=== PATIENT | female | born 1980 | race Caucasian/White ===

== ENCOUNTER 2017-03-16 09:31 | Emergency (ER) | payer BC ==
[~2017-03-16] VITALS: Ht 157.5 cm; Wt 88.1 kg
[2017-03-16 09:34] VITALS: BP 153/108
[2017-03-16] MEDS ORDERED: ASPIRIN 325 MG TAB PO ONE (09:45)
--- NOTE | 2017-03-16 09:45 | NUR ---
36F BIB SELF C/O LEFT CHEST PAIN WHILE WALKING AT 0830 TODAY. HX: ANEMIA, HEART MURMUR, ASTHMA. RX: INHALER PRN.DENIES N/V/D; SKIN IS PINK/WARM/DRY; AAOX4 WITH EVEN AND STEADY GAIT; LUNGS CLEAR BL; HR EVEN AND REGULAR; PT DENIES ANY FEVER, SOB, OR COUGH AT THIS TIME; PATIENT STATES PAIN OF 7/10 AT THIS TIME; PATIENT POSITIONED FOR COMFORT; HOB ELEVATED; BEDRAILS UP X2; BED DOWN. ER MD MADE AWARE OF PT STATUS.
[2017-03-16 10:34] LABS: HEMATOCRIT 38.2 % (36-48); HEMOGLOBIN 12.5 g/dL (12.0-16.0); MEAN CORPUSCULAR HEMOGLOBIN 26 pg (27-31); MEAN CORPUSCULAR HGB CONC 33 g/dL (33-37); MEAN CORPUSCULAR VOLUME 79 fL (80-94); PLATELET COUNT (AUTO) 213 K/uL (140-450); RED BLOOD CELL COUNT(AUTO) 4.84 MIL/uL (4.20-5.40); RED CELL DISTRIBUTION WIDTH 12.7 % (11.6-13.7); WHITE BLOOD COUNT (AUTO) 5.3 K/uL (4.8-10.8)
[2017-03-16 10:44] LABS: ANION GAP 11.7 (8-16); CARBON DIOXIDE 27.4 mmol/L (21-32); POTASSIUM 4.1 mmol/L (3.5-5.1)
[2017-03-16 10:45] LABS: PROTHROMBIN TIME 10.3 secs (10.8-13.4)
[2017-03-16 10:46] LABS: ALBUMIN 3.9 g/dL (3.4-5.0); TOTAL BILIRUBIN 0.4 mg/dL (0.0-1.0)
[2017-03-16 10:47] LABS: EOSINOPHILS % (MANUAL) 1 % (0-4); LYMPHOCYTES % (MANUAL) 35 % (20-46); MONOCYTES % (MANUAL) 8 % (5-12)
--- NOTE | 2017-03-16 10:47 | NUR ---
Patient being evaluated by DR LIGHT at bedside.
--- NOTE | 2017-03-16 11:28 | NUR ---
Patient STATED CHEST PAIN 07/04. PT appears to be resting comfortably in bed. BP 130/87,P70/MINS & Respirations even and unlabored.WILL CONTINUE TO MONITOR.
[2017-03-16 12:40] VITALS: BP 128/86
== END 2017-03-16 12:40 | disposition home or self-care (01) ==
LOC: MED 09:31
DX: R07.89 Other chest pain (principal); J45.909 Unspecified asthma, uncomplicated; Z88.8 Allergy status to other drugs, medicaments and biological substances
CPT/HCPCS: 36415; 71010; 80053; 83880; 84484; 85025; 85610; 85730; 93005; 99285; Q0092

== ENCOUNTER 2018-03-28 09:46 | Emergency (ER) | payer BC ==
[~2018-03-28] VITALS: Ht 162.6 cm; Wt 92.5 kg
[2018-03-28 09:48] VITALS: BP 149/93
--- NOTE | 2018-03-28 10:00 | NUR ---
CAME IN WITH C/O LOWER ABDOMINAL CRAMPING FOR 8 DAYS. LMP NOV
--- NOTE | 2018-03-28 10:15 | NUR ---
Patient being evaluated by physician at bedside.
--- NOTE | 2018-03-28 10:17 | NUR ---
WITH KARIME ORDER, AND CARRIED OUT, FOR LAB WORKS AND ULTRASOUND.
[2018-03-28 10:37] LABS: BASOPHILS % (AUTO) 0.6 % (0.0-2.0); EOSINOPHILS # (AUTO) 0.1 K/uL (0-0.4); EOSINOPHILS % (AUTO) 1.8 % (0.0-4.0); HEMATOCRIT 38.1 % (36-48); HEMOGLOBIN 12.2 g/dL (12.0-16.0); LYMPHOCYTES # (AUTO) 2.3 K/uL (2.5-16.5); MEAN CORPUSCULAR HEMOGLOBIN 25 pg (27-31); MEAN CORPUSCULAR HGB CONC 32 g/dL (33-37); MEAN CORPUSCULAR VOLUME 77.8 fL (80-94); MONOCYTES # (AUTO) 0.4 K/uL (0.8-1.0); MONOCYTES % (AUTO) 8.9 % (1.7-9.3); NEUTROPHILS # (AUTO) 1.7 K/uL (1.8-7.7); NEUTROPHILS % (AUTO) 37.7 % (42.2-75.2); PLATELET COUNT (AUTO) 234 K/uL (140-450); RED CELL DISTRIBUTION WIDTH 14.1 % (11.6-13.7); WHITE BLOOD COUNT (AUTO) 4.6 K/uL (4.8-10.8)
[2018-03-28 10:47] LABS: ANION GAP 11.3 (8-16); CARBON DIOXIDE 29.3 mmol/L (21-32); CREATININE 0.8 mg/dL (0.6-1.3); POTASSIUM 3.6 mmol/L (3.5-5.1)
--- NOTE | 2018-03-28 10:52 | NUR ---
MENTAL HEALTH ASSISTANT AT BEDSIDE FOR EXAM,
[2018-03-28 10:53] LABS: ALBUMIN 3.8 g/dL (3.4-5.0); TOTAL BILIRUBIN 0.3 mg/dL (0.0-1.0)
--- NOTE | 2018-03-28 12:15 | NUR ---
RESULTS BACK AND NOTED BY ERMD AND FOR D/C.
[2018-03-28 12:28] VITALS: BP 128/85
--- NOTE | 2018-03-28 12:28 | NUR ---
Patient discharged with v/s stable. Written and verbal after care instructions given and explained. Patient alert, oriented and verbalized understanding of instructions. Ambulatory with steady gait. All questions addressed prior to discharge. ID band removed. Patient advised to follow up with PMD. Rx of TRAMADOL 50 MG. given. Patient educated on indication of medication including possible reaction and side effects. Opportunity to ask questions provided and answered.
== END 2018-03-28 12:28 | disposition home or self-care (01) ==
LOC: MED 09:46
DX: R10.2 Pelvic and perineal pain (principal); J45.909 Unspecified asthma, uncomplicated; Z88.5 Allergy status to narcotic agent
CPT/HCPCS: 36415; 76830; 80053; 81002; 81025; 85025; 99284; Q0092

== ENCOUNTER 2019-08-20 08:08 | Emergency (ER) | payer BC, OTHER ==
[~2019-08-20] VITALS: Ht 162.6 cm; Wt 99.8 kg
[2019-08-20 08:17] VITALS: BP 135/87
--- NOTE | 2019-08-20 08:26 | NUR ---
PT AMBULATED TO ER BED 04
--- NOTE | 2019-08-20 08:38 | NUR ---
38 YO FEMALE C/O NAUSEA,LOWER ABDOMINAL, LOWER BACK PAIN X TODAY. BS ACTIVE IN ALL 4 QUADS. NO PAIN UPON PALPATION. DENIES ANY V/D. MED HX: ASTHMA, TUBALIGATION, HEART MURMUR
[2019-08-20 08:47] LABS: BILIRUBIN,URINE NEGATIVE (NEGATIVE); BLOOD, URINE NEGATIVE (NEGATIVE); COLOR,URINE YELLOW (YELLOW); LEUKOCYTE ESTERASE ,URINE NEGATIVE (NEGATIVE); NITRITE, URINE NEGATIVE (NEGATIVE); PH,URINE 5.5 (5.0-9.0); UGLUCOSE NEGATIVE (NEGATIVE)
[2019-08-20 08:49] LABS: APPEARANCE,URINE SLIGHTLY HAZY (CLEAR)
== END 2019-08-20 08:52 | disposition home or self-care (01) ==
LOC: MED 08:08
DX: N39.0 Urinary tract infection, site not specified (principal); J45.909 Unspecified asthma, uncomplicated; R03.0 Elevated blood-pressure reading, without diagnosis of hypertension; Z88.5 Allergy status to narcotic agent; Z98.51 Tubal ligation status
CPT/HCPCS: 81003; 81025; 87086; 99283